=== PATIENT | female | born 1970 | race Caucasian/White ===

== ENCOUNTER 2016-07-14 20:24 | Observation (INO) | payer OTHER ==
[~2016-07-14] VITALS: Ht 162.6 cm; Wt 114.7 kg
[~2016-07-14 20:24] MED LIST: ALTAVERA1 EACH; ASPIR-LOW81 MG PO; ATORVASTATIN CA10 MG PO; AVIANE1 EACH PO; BACLOFEN20 MG; BENADRYL50 MG PO; BENTYL10 MG PO; CLONAZEPAM1 MG PO; CLONAZEPAM2 MG PO; COZAAR50 MG PO; CYMBALTA30 MG PO; CYMBALTA60 MG PO; Cymbalta PO; DEXILANT60 MG PO; DIAZEPAM5 MG PO; DILAUDID2 MG PO; DILTIAZEM 24HR120 MG PO; ELAVIL25 MG PO; ESTRACE0.5 MG PO; FENTANYL1 EAC1 TD; HYDROCHLOROTHIA25 MG PO; HYDROCODON-ACE1 EAC7 PO; HYDROCODON-ACE1 EAC9 PO; HYDROMORPHONE HC2 MG PO; HYDROMORPHONE HC4 MG PO; HYOSCYAMINE0.125 MG PO; IBUPROFEN800 MG PO; KEFLEX500 MG PO; KLONOPIN1 MG PO; LIDODERM 5% P1 PATCH TD; LIPITOR10 MG PO; LISINOPRIL5 MG PO; LOSARTAN POTASS50 MG PO; LYRICA100 MG PO; LYRICA150 MG PO; Lipitor PO; MELOXICAM15 MG PO; MOBIC7.5 MG PO; MORPHINE SULFAT15 M1 PO; Motrin PO; NEURONTIN300 MG PO; NUCYNTA50 MG PO; PERCOCET 5/31 TABLET PO; PRILOSEC40 MG PO; PROMETHAZINE HC25 M1 PO; TIZANIDINE HCL4 M1 PO; TIZANIDINE HCL4 MG PO; TRAMADOL HCL50 MG PO; TYLENOL WITH C1 EACH PO; ULTRAM50 MG PO; VICODIN 5-3001 EACH PO; VICODIN,LORT1 TABLET PO; VITAMIN D35000 UNIT PO; VITAMIN D5000 INTUN PO; VITAMIN D5000 UNIT PO; VITAMIN E400 UNIT PO; Valium PO; ZANAFLEX4 MG PO; ZANTAC300 MG PO; ZOFRAN ODT4 MG PO; Zestril,Prinivil PO; Zithromax PO
[2016-07-14 21:02] LABS: HEMATOCRIT 37.3 % (36.0-46.0); MCH 27.2 PG (29.0-34.0); MCHC 33.2 G/DL (30.0-36.0); MCV 81.8 FL (83-99); MEAN PLAT.VOLUME 10.5 uM^3 (9.5-12.4); PLATELET COUNT 340 K/uL (156-360); RBC DIS.WIDTH-SD 44.5 % (39-53); RED BLOOD COUNT 4.56 M/uL (3.80-5.20); WHITE BLOOD COUNT 10.7 K/uL (4.1-10.2)
[2016-07-14 21:10] LABS: CHLORIDE 107 mEq/L (99-109); POTASSIUM 4.1 mEq/L (3.7-5.4); SODIUM 140 mEq/L (136-147)
[2016-07-14 21:11] LABS: GLUCOSE 95 mg/dL (70-99)
[2016-07-14 21:13] LABS: ANION GAP 10 MEQ/L (2-14)
[2016-07-14 21:15] LABS: GFR ESTIMATE (CALCULATED) > 59 mL/min/
[2016-07-14 21:16] LABS: UREA NITROGEN (BUN) 12 mg/dL (9-23)
[2016-07-14 21:23] LABS: TROP-I INTERPRETATION NEGATIVE; TROPONIN-I < 0.01 ng/mL (0.0-0.30)
[2016-07-14 21:59] LABS: D-DIMER ELISA 0.52 mg/L FEU (< 0.57)
[2016-07-14 22:07] LABS: QUANTITATIVE HCG < 4.0 MIU/ML
[2016-07-15] MEDS ORDERED: TRAZODONE HCL50 MG PO (01:07)
[2016-07-15] MEDS ORDERED: VITAMIN D35000 UNIT PO (01:08)
[2016-07-15] MEDS ORDERED: VITAMIN E400 UNIT PO (01:08)
[2016-07-15 04:00] LABS: TROP-I INTERPRETATION NEGATIVE; TROPONIN-I < 0.01 ng/mL (0.0-0.30)
[2016-07-15 04:12] VITALS: BP 116/56
[2016-07-15 08:30] VITALS: BP 161/77
[2016-07-15 09:43] LABS: TROP-I INTERPRETATION NEGATIVE; TROPONIN-I < 0.01 ng/mL (0.0-0.30)
[2016-07-15 12:07] VITALS: BP 109/68
[2016-07-15] MEDS ORDERED: HYDROCHLOROTHIA25 MG PO (16:01)
[2016-07-15 16:20] VITALS: BP 146/82
== END 2016-07-15 16:42 | disposition home or self-care (01) ==
LOC: EME 20:24 → EDOF 07-15 02:03 → 5WEST 07-15 03:37
PROVIDERS: Emergency Medicine; Family Medicine
DX: I16.0 Hypertensive urgency (principal); R07.89 Other chest pain; I10 Essential (primary) hypertension; E78.5 Hyperlipidemia, unspecified; F32.9 Major depressive disorder, single episode, unspecified; M79.7 Fibromyalgia; K21.9 Gastro-esophageal reflux disease without esophagitis; G80.9 Cerebral palsy, unspecified; G89.29 Other chronic pain; M54.9 Dorsalgia, unspecified; H91.90 Unspecified hearing loss, unspecified ear
CPT/HCPCS: 71020; 71275; 80048; 84484; 84702; 85027; 85379; 93005; 99281; 99285; G0378; G8987 GO CH; G8988 GO CH; G8989 GO CH; J1650; J1885; J7030

== ENCOUNTER → 2017-05-10 | Outpatient (CLI) | payer OTHER ==
[~2017-05-10] MED LIST changes: +TRAZODONE HCL50 MG PO
== END | disposition home or self-care (01) ==
LOC: NUC 08:25
DX: K31.84 Gastroparesis (principal)
CPT/HCPCS: 78264; A9541